=== PATIENT | female | born 1955 | race Caucasian/White ===

== ENCOUNTER 2018-09-29 11:38 | Emergency (ER) | payer BC, OTHER ==
[2018-09-29 12:40] VITALS: BP 165/91
--- NOTE | 2018-09-29 13:31 | UC ---
Respiratory Complaint HPI - HPI Summary HPI Summary: Cough for about 4 days. White sputum. No hemoptysis. No fever. She is a smoker but denies asthma or copd. - History of Current Complaint Chief Complaint: UCRespiratory Stated Complaint: COUGH, HEADACHE Time Seen by Provider: 09/29/18 13:09 Hx Obtained From: Patient ?: No Onset/Duration: Gradual Onset, Lasting Days Timing: Constant Severity Initially: Moderate Severity Currently: Moderate Pain Intensity: 9 Character: Cough: Productive Aggravating Factors: Deep Breaths, Recumbent Position Alleviating Factors: Upright Position, Spontaneous Resolution Associated Signs And Symptoms: Positive: URI. Negative: Dyspnea, Fever, Chills , Hemoptysis, Calf Pain, Calf Swelling, Nasal Congestion, Hoarseness, Sinus Discomfort - Allergies/Home Medications Allergies/Adverse Reactions: Allergies Allergy/AdvReac Type Severity Reaction Status Date / Time bupropion [From Zyban] Allergy Swelling Verified 09/29/18 12:41 Of Face,Lips,& Throat PMH/Surg Hx/FS Hx/Imm Hx Previously Healthy: No - smoker. prior bronchitis. - Surgical History Surgical History: Yes Surgery Procedure, Year, and Place: lumpectomy - Family History Known Family History: Positive: Other - copd. - Social History Occupation: Employed Part-time Alcohol Use: Rare Substance Use Type: None Smoking Status (MU): Heavy Every Day Tobacco Smoker Household Exposure Type: Cigarettes Review of Systems All Other Systems Reviewed And Are Negative: Yes Respiratory: Positive: Cough Physical Exam Triage Information Reviewed: Yes Appearance: Well-Appearing, No Pain Distress, Well-Nourished Vital Signs: Initial Vital Signs Temp 98.4 F 09/29/18 12:35 Pulse 75 09/29/18 12:35 Resp 18 09/29/18 12:35 BP 165/91 09/29/18 12:35 Pulse Ox 96 09/29/18 12:35 Vital Signs Reviewed: Yes Eyes: Positive: Conjunctiva Clear. Negative: Conjunctiva Inflamed ENT: Positive: Pharynx normal, Nasal congestion, TMs normal. Negative: Pharyngeal erythema, Nasal drainage, TM bulging, TM dull, TM red, Tonsillar swelling, Tonsillar exudate, Trismus, Hoarse voice, Sinus tenderness, Uvula midline Neck: Positive: Supple, Nontender, No Lymphadenopathy Respiratory: Positive: Lungs clear, Normal breath sounds, No respiratory distress, No accessory muscle use. Negative: Respiratory distress, Decreased breath sounds, Accessory muscle use, Crackles, Rhonchi, Stridor, Wheezing Cardiovascular: Positive: No Murmur, Pulses Normal Abdomen Description: Positive: No Organomegaly, Soft. Negative: Distended, Guarding Musculoskeletal: Positive: Strength Intact, ROM Intact, No Edema Neurological: Positive: Alert, Muscle Tone Normal. Negative: Fatigued Psychological: Positive: Age Appropriate Behavior Skin Exam: Normal Skin: Negative: Rashes Respiratory Course/Dx - Differential Dx/Diagnosis Provider Diagnosis: Viral URI with cough Discharge - Sign-Out/Discharge Documenting (check all that apply): Patient Departure All imaging exams completed and their final reports reviewed: No Studies - Discharge Plan Condition: Good Disposition: HOME Prescriptions: Acetaminop/Codeine 30 MG TAB* [Tylenol/Codeine 30 MG TAB*] 1 tab PO BEDTIME PRN #5 tab MDD 1 PRN Reason: Cough Albuterol HFA INHALER* [Ventolin HFA Inhaler*] 1 - 2 puff INH Q6H PRN #1 mdi PRN Reason: Cough Azithromyxin GREG (NF) [Z-Greg (Zithromax) 250 mg tabs #6] 2 tab PO .TODAY, THEN 1 DAILY #6 tab Benzonatate CAP* [Tessalon 100 MG CAP*] 100 mg PO TID PRN #21 cap PRN Reason: Cough Patient Education Materials: Viral Syndrome (ED), Upper Respiratory Infection ( ED) Forms: *Work Release Referrals: No Primary Care Phys,NOPCP [Primary Care Provider] - Additional Instructions: REturn if needed. Tea with honey and vics vapo rub will help as well. - Billing Disposition and Condition Condition: GOOD Disposition: Home
== END 2018-09-29 13:35 | disposition home or self-care (01) ==
LOC: UCCORT 11:38
DX: J06.9 Acute upper respiratory infection, unspecified (principal); R05 Cough; F17.210 Nicotine dependence, cigarettes, uncomplicated; Z88.8 Allergy status to other drugs, medicaments and biological substances
CPT/HCPCS: 99202; G0463

== ENCOUNTER 2019-09-10 15:02 | Emergency (ER) | payer MEDICARE, BC ==
--- NOTE | 2019-09-10 15:58 | UC ---
Nausea/Vomiting/Diarrhea HPI - HPI Summary HPI Summary: Patient is a 64yo female presenting with vomiting, nausea, and diarrhea x2 days. Patient notes she "has vomited dozens of times." States she "cant keep anything down, not even sips of water, and just throws up bile." Notes a few episodes of diarrhea. States she has bodyaches and worsening lower back pain. Denies abdominal pain. Denies urinary symptoms. States her fever was 103 this morning but she was able to take Tylenol to bring it down. Denies recent URI symptoms. Denies cough, wheezing, difficulty breathing. PMHx significant for COPD. Patient states she has been a heavy every day smoker for "many many years." Notes that she "quit at some point for 10 years." She also notes that she works for a [email or web address] at [employer] and has been around international students who were recently quarantined and tested negative for coronavirus. - History of Current Complaint Chief Complaint: UCGI Stated Complaint: VOMITING,BACK PAIN,FEVER Hx Obtained From: Patient Pain Intensity: 9 Pain Scale Used: 0-10 Numeric - Allergies/Home Medications Allergies/Adverse Reactions: Allergies Allergy/AdvReac Type Severity Reaction Status Date / Time bupropion [From [employer]] Allergy Swelling Verified 09/29/18 12:41 Of Face,Lips,& Throat Home Medications: Home Medications Acetaminophen [Tylenol Extra Strength] 1,000 mg PO Q6H PRN 09/10/19 [History Confirmed 09/10/19] PMH/Surg Hx/FS Hx/Imm Hx Respiratory History: COPD - Surgical History Surgical History: Yes Surgery Procedure, Year, and Place: lumpectomy - Family History Known Family History: Positive: Other - copd. - Social History Alcohol Use: Rare Substance Use Type: None Smoking Status (MU): Heavy Every Day Tobacco Smoker Type: Cigarettes Amount Used/How Often: 1/2 PPD Household Exposure Type: Cigarettes Review of Systems All Other Systems Reviewed And Are Negative: Yes Constitutional: Positive: Fever, Chills, Fatigue ENT: Positive: Negative Respiratory: Positive: Negative Cardiovascular: Positive: Negative Gastrointestinal: Positive: Vomiting, Diarrhea, Nausea. Negative: Abdominal Pain Genitourinary: Positive: Negative Musculoskeletal: Positive: Arthralgia - low back ache, Myalgia Neurological/Mental Status: Positive: Negative Physical Exam - Summary Physical Exam Summary: Vital Signs Reviewed: Yes A+Ox3, no distress, ill-appearing Eyes: Conjunctiva Clear ENT: Hearing grossly normal, TM x 2 clear, moist, uvula midline, no exudate, no erythema Neck: Positive: Supple Respiratory: Positive: No respiratory distress, No accessory muscle use, + diffuse expiratory wheezing throughout lung keating, no rales/rhonchi Cardiovascular: RRR nl s1, s2 no m/r Abd: soft, + BS hypoactive, nt/nd no guarding Musculoskeletal Exam: HAGEN x 4 without difficulty Neurological: Positive: Alert Psychological: Positive: age appropriate behavior Skin: Positive: no rash, no ecchymosis Vital Signs: Initial Vital Signs Temp 97.9 F 09/10/19 15:16 Pulse 88 09/10/19 15:16 Resp 16 09/10/19 15:16 BP 128/66 09/10/19 15:16 Pulse Ox 99 09/10/19 15:16 Lab Results 09/10/19 09/10/19 Range/Units 15:54 16:44 POC Urine Color Other POC Urine Clarity Clear POC Urine pH 6.0 (5-9) POC Ur Specif Lorane >= 1.030 (1.010-1.030) POC Urine Protein 3+ A (Negative) POC Ur Glucose (UA) Trace A (Negative) POC Urine Ketones 3+ A (Negative) POC Urine Blood 3+ A (Negative) POC Urine Nitrite Negative (Negative) POC Urine Bilirubin 3+ A (Negative) POC Urine Urobilinogen 2.0 A (Negative) POC U Leukocyte Esteras Negative (Negative) Influenza A (Rapid) Negative (Negative) Influenza B (Rapid) Negative (Negative) Diagnostics - Radiology CXR Radiology Interpretation Completed By: Radiologist Summary of Radiographic Findings: FINDINGS: CARDIOMEDIASTINAL SILHOUETTE: The cardiomediastinal silhouette is normal. HEATHER: There is a 4.8 cm density of the left hilum. PLEURA: The costophrenic angles are sharp. No pleural abnormalities are noted. LUNG PARENCHYMA: There has been interval development of confluent alveolar opacification of the superior segment of the left lower lobe ABDOMEN: The upper abdomen is clear. There is no subphrenic gas. BONES AND SOFT TISSUES: No bone or soft tissue abnormalities are noted. OTHER: None. IMPRESSION: THERE IS A 4.8 CM DENSITY OVERLYING THE LEFT HILUM WITH LEFT LOWER LOBE CONSOLIDATION. THE FINDINGS ARE CONCERNING FOR POSTOBSTRUCTIVE CONSOLIDATION. RECOMMEND CONSIDERATION OF FURTHER EVALUATION WITH CONTRAST-ENHANCED CT OF THE CHEST TO EXCLUDE PULMONARY NEOPLASM. Naus/Vom/Diarrhea Course/Dx - Course Course Of Treatment: Patient is a 64yo female presenting with vomiting, nausea, and diarrhea x2 days. Patient notes she "has vomited dozens of times." States she "cant keep anything down, not even sips of water, and just throws up bile." Notes a few episodes of diarrhea. States she has bodyaches and worsening lower back pain. Denies abdominal pain. Denies urinary symptoms. States her fever was 103 this morning but she was able to take Tylenol to bring it down. Denies recent URI symptoms. Denies cough, wheezing, difficulty breathing. PMHx significant for COPD. Patient states she has been a heavy every day smoker for "many many years." Negative rapid flu. VS normal. Patient received 1L NS and IV zofran. UA positive for 3+ protein, blood, ketones, and bilirubin. No leuks. CXR revealed "HEATHER: There is a 4.8 cm density of the left hilum. PLEURA: The costophrenic angles are sharp. No pleural abnormalities are noted. LUNG PARENCHYMA: There has been interval development of confluent alveolar opacification of the superior segment of the left lower lobe." Radiologist also recommended enhanced CT scan to rule out neoplasm. I discussed with patient the need for enhanced CT and lab work for further evaluation of CXR findings and current symptoms. Patient voiced understanding and verbally consented to transfer to [facility] via ambulance. Patient stable and in no distress upon departure from clinic. Discussed patient with Dr. Hagen who also agreed with treatment plan. - Differential Dx/Diagnosis Differential Diagnoses - Female: Pneumonia, Urinary Tract Infection, Gastroenteritis (Viral), Gastroenteritis (Bacterial), Vomiting, Diarrhea, Sepsis , Pyelonephritis, Gastritis, Neoplasm Provider Diagnosis: Nausea and vomiting, Expiratory wheezing, Left lower lobe consolidation, Hilar density, Low back pain Condition At Discharge: Stable Discharge ED - Sign-Out/Discharge Documenting (check all that apply): Patient Departure All imaging exams completed and their final reports reviewed: Yes - Discharge Plan Condition: Stable Disposition: TRANS HIGHER LVL OF CARE FAC Referrals: Micheal Aguirre MD [Primary Care Provider] - - Billing Disposition and Condition Condition: STABLE Disposition: Trans Higher Lvl of Care Fac
[2019-09-10 16:06] LABS: Influenza A Molecular Negative (Negative); Influenza B Molecular Negative (Negative)
[2019-09-10] MEDS ORDERED: NS 0.9% 1000 ML** 1,000 ML IV ONE (16:14)
[2019-09-10] MEDS ORDERED: Ondansetron INJ* 2 MG/ML VIAL IV ONE (16:15)
[2019-09-10 17:33] VITALS: BP 142/63
== END 2019-09-10 17:38 | disposition short-term general hospital (02) ==
LOC: UCCORT 15:02
DX: R11.2 Nausea with vomiting, unspecified (principal); R19.7 Diarrhea, unspecified; J44.9 Chronic obstructive pulmonary disease, unspecified; F17.210 Nicotine dependence, cigarettes, uncomplicated; R06.2 Wheezing; R91.8 Other nonspecific abnormal finding of lung field; M54.5 Low back pain; Z88.8 Allergy status to other drugs, medicaments and biological substances
CPT/HCPCS: 71046; 81003; 96361; 96374; 99213; G0463; J2405